=== PATIENT | female | born 1970 | race Hispanic/Latino ===

== ENCOUNTER 2024-04-03 12:10 | Day surgery (SDC) | payer OTHER ==
[2024-04-03 12:44] VITALS: BP 131/58; TEMP 98.9; O2SAT 100; BMI 37.8
[2024-04-03] MEDS ORDERED: SOD FERRIC GLUC COMPLX/SUCROSE 125 MG in NA CHLORIDE 0.9% 100 ML IV ONE (13:00)
== END 2024-04-03 13:40 | disposition home or self-care (01) ==
LOC: DS 12:10
PROVIDERS: ATTEND Obstetrics & Gynecology
DX: D50.9 Iron deficiency anemia, unspecified (principal)
CPT/HCPCS: 96365; J2916